=== PATIENT | male | born 1950 | race Caucasian/White ===

== ENCOUNTER → 2019-08-27 | Outpatient (CLI) | payer MEDICARE, OTHER ==
[~2019-08-27] MED LIST: ALBUTEROL2.5 MG/0.5 INH; APAP650 PO; ASPIR 8181 M1 PO; CELEXA40 MG PO; CENTRUM SILVER1 EAC2 PO; COZAAR 50 MG TA50 M2 PO; FLOMAX0.4 MG PO; GLUCOPHAGE XR500 MG PO; IBUPROFEN 600600 M1 PO; IBUPROFEN 800800 M1 PO; MELATONIN3 MG PO; METHADONE HCL 110 M1 PO; METHADONE HCL5 MG PO; PROAIR HFA8.5 GM PO; SUDAFED 12 HOU120 MG PO; VALSARTAN-HCTZ1 EACH PO; VENTOLIN HFA INH8 GM INH; VIAGRA100 MG PO; ZYRTEC10 M4 PO; ZYRTEC10 MG PO; [UNRECOGNIZED DRUG - OTHER]
== END ==
LOC: M.PC 10:28
PROVIDERS: ATTEND Physical Medicine & Rehabilitation
DX: M47.26 Other spondylosis with radiculopathy, lumbar region (principal); M51.16 Intervertebral disc disorders with radiculopathy, lumbar region; Z79.899 Other long term (current) drug therapy

== ENCOUNTER → 2019-09-24 | Outpatient (CLI) | payer MEDICARE, OTHER | LOC: M.PC 04:36 | PROVIDERS: ATTEND Physical Medicine & Rehabilitation | DX: M47.26 Other spondylosis with radiculopathy, lumbar region (principal); M51.17 Intervertebral disc disorders with radiculopathy, lumbosacral region; M48.07 Spinal stenosis, lumbosacral region ==

== ENCOUNTER → 2019-10-01 | Outpatient (CLI) | payer MEDICARE, OTHER | END | disposition home or self-care (01) | LOC: M.PC 13:24 | PROVIDERS: ATTEND Physical Medicine & Rehabilitation | DX: M54.5 Low back pain (principal); Z88.8 Allergy status to other drugs, medicaments and biological substances; Z79.899 Other long term (current) drug therapy ==

== ENCOUNTER → 2019-10-08 | Outpatient (CLI) | payer MEDICARE, OTHER | LOC: M.PC 10:00 | PROVIDERS: ATTEND Physical Medicine & Rehabilitation | DX: M51.17 Intervertebral disc disorders with radiculopathy, lumbosacral region (principal); M48.07 Spinal stenosis, lumbosacral region; M47.26 Other spondylosis with radiculopathy, lumbar region; Z79.899 Other long term (current) drug therapy ==

== ENCOUNTER → 2019-11-12 | Outpatient (CLI) | payer MEDICARE, OTHER ==
[~2019-11-12] MED LIST changes: +ROXICODONE5 M2 PO
== END ==
LOC: M.PC 08:40
PROVIDERS: ATTEND Physical Medicine & Rehabilitation
DX: M51.17 Intervertebral disc disorders with radiculopathy, lumbosacral region (principal); M48.07 Spinal stenosis, lumbosacral region; M47.26 Other spondylosis with radiculopathy, lumbar region; I10 Essential (primary) hypertension; Z96.611 Presence of right artificial shoulder joint; Z88.0 Allergy status to penicillin; Z98.890 Other specified postprocedural states; Z96.612 Presence of left artificial shoulder joint; Z79.899 Other long term (current) drug therapy

== ENCOUNTER → 2019-12-10 | Outpatient (CLI) | payer MEDICARE, OTHER | LOC: M.PC 09:21 | PROVIDERS: ATTEND Physical Medicine & Rehabilitation | DX: M47.26 Other spondylosis with radiculopathy, lumbar region (principal); M51.16 Intervertebral disc disorders with radiculopathy, lumbar region; M48.07 Spinal stenosis, lumbosacral region ==